=== PATIENT | male | born 1965 | race Caucasian/White ===

== ENCOUNTER 2023-02-02 17:53 | Inpatient (IN) | payer OTHER ==
[2023-02-02 19:12] VITALS: BMI 25.2
[2023-02-02] MEDS ORDERED: chlordiazePOXIDE HCL 25 MG CAPSULE PO PRN (21:38)
[2023-02-02] MEDS ORDERED: guaiFENesin 600 MG TABLET.ER (FP) PO PRN (22:10)
[2023-02-02] MEDS ORDERED: POLYETHYLENE GLYCOL (HEALTHYLAX) 3350 17 GM PACKET PO PRN (22:10)
[2023-02-02] MEDS ORDERED: LOPERAMIDE HCL 2 MG CAPSULE PO PRN (22:10)
[2023-02-02] MEDS ORDERED: IBUPROFEN 600 MG TABLET (FP) PO PRN (22:10)
[2023-02-02] MEDS ORDERED: METHOCARBAMOL 500 MG TABLET PO PRN (22:10)
[2023-02-02] MEDS ORDERED: NICOTINE POLACRILEX 2 MG GUM BUC PRN (22:10)
[2023-02-02] MEDS ORDERED: BENZOCAINE/MENTHOL (CHLORASEPTIC ) LOZENGE MM PRN (22:10)
[2023-02-02] MEDS ORDERED: ACETAMINOPHEN 325 MG TABLET (FP) PO PRN (22:10)
[2023-02-02] MEDS ORDERED: DICYCLOMINE HCL 10 MG CAPSULE PO PRN (22:10)
[2023-02-02] MEDS ORDERED: P-EPHED 60MG/TRIPROLIDI 2.5MG TABLET PO PRN (22:10)
[2023-02-02] MEDS ORDERED: MAGNESIUM HYDROX 2400MG/30ML ORAL SUSPENSION 30 ML CUP PO PRN (22:10)
[2023-02-02] MEDS ORDERED: BISMUTH SUBSALICYLATE 524 MG/30 ML PO PRN (22:10)
[2023-02-02] MEDS ORDERED: IBUPROFEN 400 MG TABLET (FP) PO PRN (22:10)
[2023-02-02] MEDS ORDERED: MAG HYDROX/AL HYDROX/SIMETH 30 ML UNIT-DOSE CUP PO PRN (22:10)
[2023-02-02] MEDS ORDERED: ONDANSETRON *ODT* 4 MG TABLET SL PRN (22:10)
[2023-02-02] MEDS ORDERED: BENZONATATE 200 MG CAPSULE PO PRN (22:10)
[2023-02-02] MEDS ORDERED: chlordiazePOXIDE HCL 25 MG CAPSULE ONE (23:21)
[2023-02-02] MEDS: chlordiazePOXIDE HCL 25 MG CAPSULE PO SCH (23:24)
[2023-02-03] MEDS: chlordiazePOXIDE HCL 25 MG CAPSULE PO SCH ×3 (05:50→17:51)
[2023-02-03] MEDS ORDERED: PRENATAL VITAMINS W/ FOLIC ACID TABLET (FP) PO SCH (10:00)
[2023-02-03 10:44] LABS: HEMOGLOBIN 14.9 GM/dL (11.7-16.9); MCH 31.5 pg (25.7-33.7); MCHC 33.8 g/dl (32.0-35.9); MEAN CELL VOLUME 93.4 fl (80-96); MEAN PLT VOLUME 9.3 fl (7.5-11.1); PLATELET COUNT 144 10^3/uL (134-434); RBC 4.71 M/mm3 (4.00-5.60); RDW 13.2 % (11.9-15.9)
[2023-02-03 10:47] LABS: CHLORIDE 72 mmol/L (98-107); SODIUM 125 mmol/L (136-145)
[2023-02-03 10:56] LABS: ALBUMIN 3.9 g/dl (3.4-5.0); BLOOD UREA NITROGEN 11.6 mg/dL (7-18); CO2 35 mmol/L (21-32); GLUCOSE,RANDOM 147 mg/dL (74-106)
[2023-02-03 10:59] LABS: CREATININE 0.9 mg/dL (0.55-1.3); SGOT/AST 307 U/L (15-37); SGPT/ALT 103 U/L (13-61)
[2023-02-03 11:01] LABS: BILIRUBIN,TOTAL 3.8 mg/dL (0.2-1)
[2023-02-03 11:03] LABS: TOT PROT 7.1 g/dl (6.4-8.2)
[2023-02-03 11:04] LABS: ALK PHOS 131 U/L (45-117)
[2023-02-03 11:06] LABS: ANION GAP 17 mmol/L (4-13); CALCIUM 6.3 mg/dL (8.5-10.1); POTASSIUM 2.1 mmol/L (3.5-5.1)
[2023-02-03] MEDS ORDERED: POTASSIUM CHLORIDE ORAL LIQUID 20 MEQ/15 ML PO ONE ×2 (11:22→15:30)
[2023-02-03 13:01] VITALS: BP 143/84; PULSE 85; RESP 18; TEMP 97.8
[2023-02-03] MEDS ORDERED: THIAMINE HCL 100 MG TABLET (FP) PO SCH (22:00)
[2023-02-03] MEDS ORDERED: MELATONIN 5 MG TABLETS PO SCH (22:00)
[2023-02-04] MEDS ORDERED: chlordiazePOXIDE HCL 25 MG CAPSULE PO SCH (05:00)
[2023-02-05] MEDS ORDERED: chlordiazePOXIDE HCL 10 MG CAPSULE PO PRN
[2023-02-05] MEDS ORDERED: chlordiazePOXIDE HCL 10 MG CAPSULE PO SCH (05:00)
[2023-02-06] MEDS ORDERED: chlordiazePOXIDE HCL 10 MG CAPSULE PO SCH (05:00)
[2023-02-07] MEDS ORDERED: chlordiazePOXIDE HCL 10 MG CAPSULE PO ONE (05:00)
== END 2023-02-03 19:36 | disposition short-term general hospital (02) | DRG 775 ==
LOC: YASAS 17:53 → Y3N 23:12
PROVIDERS: ADMIT Allergy & Immunology; ATTEND Surgery
PROC: HZ2ZZZZ Detoxification Services for Substance Abuse Treatment (ICD-10-PCS; principal; 2023-02-02)
DX: F10.230 Alcohol dependence with withdrawal, uncomplicated (principal); F17.210 Nicotine dependence, cigarettes, uncomplicated; E87.8 Other disorders of electrolyte and fluid balance, not elsewhere classified; E87.6 Hypokalemia; R74.01 Elevation of levels of liver transaminase levels; E83.51 Hypocalcemia; Z91.81 History of falling
CPT/HCPCS: 36415; 80053; 80307; 85027; 86780; 87635; 93005; 93010

== ENCOUNTER 2023-02-03 14:54 | Inpatient (IN) | payer OTHER ==
[2023-02-03 15:25] VITALS: BMI 21.9
[2023-02-03 16:38] LABS: VENOUS BASE EXCESS 13.9 mmol/L (-2-2); VENOUS O2 SATURATION 95.7 % (70-80); VENOUS PCO2 42.7 mmHg (38-52); VENOUS PH 7.563 (7.310-7.410)
[2023-02-03 16:44] LABS: BASO % 0.6 % (0-2.0); EOS % 0.2 % (0-4.5); HEMATOCRIT 41.1 % (35.4-49); HEMOGLOBIN 14.2 GM/dL (11.7-16.9); LYMPH % 18.6 % (8-40); MCHC 34.6 g/dl (32.0-35.9); MEAN CELL VOLUME 92.4 fl (80-96); MEAN PLT VOLUME 9.4 fl (7.5-11.1); MONO % 9.7 % (3.8-10.2); NEUT % 70.9 % (42.8-82.8); PLATELET COUNT 145 10^3/uL (134-434); RBC 4.45 M/mm3 (4.00-5.60); RDW 13.3 % (11.9-15.9); WHITE BLOOD COUNT 5.9 K/mm3 (4.0-10.0)
[2023-02-03 16:46] LABS: EPI CELLS >36 /uL (0-25.1); HYALINE CASTS 1 /uL (0-3.1); URINE APPEARANCE TURBID; URINE BILIRUBIN 2+ (NEGATIVE); URINE COLOR ORANGE; URINE GLUCOSE (UA) NEGATIVE (NEGATIVE); URINE KETONE TRACE (NEGATIVE); URINE LEUK ESTERASE 1+ (NEGATIVE); URINE NITRITE POSITIVE (NEGATIVE); URINE PROTEIN 2+ (NEGATIVE); URINE WBC 45 /uL (0-25.8)
[2023-02-03 17:57] LABS: CHLORIDE 78 mmol/L (98-107); SODIUM 125 mmol/L (136-145)
[2023-02-03 18:00] LABS: ALBUMIN 3.5 g/dl (3.4-5.0); BLOOD UREA NITROGEN 12.8 mg/dL (7-18); CO2 39 mmol/L (21-32); GLUCOSE,RANDOM 114 mg/dL (74-106)
[2023-02-03 18:02] LABS: SGPT/ALT 84 U/L (13-61)
[2023-02-03 18:03] LABS: CREATININE 0.7 mg/dL (0.55-1.3); PHOSPHOROUS 2.7 mg/dL (2.5-4.9)
[2023-02-03 18:04] LABS: BILIRUBIN,TOTAL 2.4 mg/dL (0.2-1); SGOT/AST 236 U/L (15-37); TOT PROT 6.3 g/dl (6.4-8.2)
[2023-02-03] MEDS ORDERED: CEFTRIAXONE 1 GM in DEXTROSE 5%-WATER - 50 ML IVPB ONE (18:04)
[2023-02-03 18:05] LABS: ALK PHOS 112 U/L (45-117)
[2023-02-03 18:10] LABS: ANION GAP 9 mmol/L (4-13); CALCIUM 6.1 mg/dL (8.5-10.1); MAGNESIUM 0.7 mg/dL (1.8-2.4); POTASSIUM 2.2 mmol/L (3.5-5.1)
[2023-02-03] MEDS ORDERED: MAGNESIUM SULF 50% (8.12 MEQ/2 ML-1 GM VIAL) IVPB ONE ×3 (18:12→23:30)
[2023-02-03] MEDS ORDERED: CEFTRIAXONE 1 GM/50 ML BAG ONE (18:15)
[2023-02-03] MEDS ORDERED: FOLIC ACID INJECTION - 1 MG, THIAMINE HCL 100 MG, MULTIVIT INJECTION ADULT 10 ML in SOD... IVPB ONE (18:24)
[2023-02-03] MEDS ORDERED: NAPH,MB-DB/K PH,MBDB POWDER PACKET PO ONE (18:24)
[2023-02-03] MEDS ORDERED: CALCIUM GLUCONATE 10% - 1,000 MG/10 ML VIAL IVPUSH ONE ×2 (18:30→23:30)
[2023-02-03] MEDS ORDERED: POTASSIUM CHLORIDE TABS 20 MEQ TABLET.ER (FP) PO ONE ×2 (18:30→18:49)
[2023-02-03] MEDS ORDERED: MAGNESIUM SULFATE IN WATER 2 GM/50 ML IVPB IVPB ONE ×2 (18:50→20:54)
[2023-02-03] MEDS ORDERED: CALCIUM GLUCONATE 10% - 1,000 MG/10 ML VIAL ONE (18:50)
[2023-02-03] MEDS ORDERED: NAPH,MB-DB/K PH,MBDB POWDER PACKET ONE (18:50)
[2023-02-03] MEDS ORDERED: KCL 10 MEQ IVPB 10 MEQ/100 ML INFUS.BAG IVPB ONE (19:18)
[2023-02-03] MEDS: KCL 10 MEQ IVPB 10 MEQ/100 ML INFUS.BAG IVPB SCH ×3 (19:19→20:52)
[2023-02-03 19:29] LABS: URINE BACTERIA 177.5 /uL (0-1359); URINE RBC 26.2 /uL (0-23.9)
[2023-02-03 19:32] LABS: URINE CRYSTALS MANY /hpf
[2023-02-03] MEDS ORDERED: KCL 10 MEQ IVPB 20 MEQ/200 ML INFUS.BAG IVPB ONE (19:55)
[2023-02-03 21:56] LABS: CHLORIDE 78 mmol/L (98-107); SODIUM 125 mmol/L (136-145)
[2023-02-03 21:59] LABS: ALBUMIN 3.4 g/dl (3.4-5.0); BLOOD UREA NITROGEN 12.2 mg/dL (7-18); CO2 37 mmol/L (21-32); GLUCOSE,RANDOM 113 mg/dL (74-106); MAGNESIUM 1.6 mg/dL (1.8-2.4)
[2023-02-03 22:02] LABS: CREATININE 0.6 mg/dL (0.55-1.3); SGOT/AST 209 U/L (15-37); SGPT/ALT 81 U/L (13-61)
[2023-02-03 22:04] LABS: BILIRUBIN,TOTAL 2.2 mg/dL (0.2-1); TOT PROT 6.2 g/dl (6.4-8.2)
[2023-02-03 22:05] LABS: ALK PHOS 111 U/L (45-117); ANION GAP 10 mmol/L (4-13); CALCIUM 6.6 mg/dL (8.5-10.1); POTASSIUM 2.7 mmol/L (3.5-5.1)
[2023-02-03] MEDS ORDERED: SODIUM CHLORIDE 1,000 ML IV STA ×2 (22:49→22:50)
[2023-02-03] MEDS ORDERED: chlordiazePOXIDE HCL 25 MG CAPSULE PO PRN (23:33)
[2023-02-04] MEDS ORDERED: SODIUM CHLORIDE 1,000 ML with POTASSIUM CHLORIDE 40 MEQ IV SCH (00:01)
[2023-02-04] MEDS ORDERED: KCL 10 MEQ IVPB 10 MEQ/100 ML INFUS.BAG IVPB ONE ×2 (00:28→02:03)
[2023-02-04] MEDS ORDERED: chlordiazePOXIDE HCL 25 MG CAPSULE ONE ×5 (00:28→20:47)
[2023-02-04] MEDS ORDERED: MAGNESIUM 1GM/D5W - 2 GM/200 ML IVPB IVPB ONE (00:28)
[2023-02-04] MEDS ORDERED: CALCIUM GLUCONATE 10% - 1,000 MG/10 ML VIAL ONE (00:29)
[2023-02-04] MEDS: KCL 10 MEQ IVPB 10 MEQ/100 ML INFUS.BAG IVPB SCH ×5 (01:00→16:59)
[2023-02-04] MEDS: chlordiazePOXIDE HCL 25 MG CAPSULE PO SCH ×5 (01:34→22:15)
[2023-02-04] MEDS ORDERED: POTASSIUM CHLORIDE TABS 20 MEQ TABLET.ER (FP) PO ONE ×2 (03:45→04:00)
[2023-02-04] MEDS ORDERED: MAGNESIUM SULF 50% (8.12 MEQ/2 ML-1 GM VIAL) IVPB ONE (09:23)
[2023-02-04] MEDS ORDERED: ENOXAPARIN NA (PORCINE) 40 MG/0.4 ML DISP.SYRIN SQ ONE (09:52)
[2023-02-04] MEDS ORDERED: THIAMINE HCL 200 MG/2 ML VIAL ONE (09:52)
[2023-02-04] MEDS ORDERED: FOLIC ACID 5 MG/1 ML SQ SCH (10:00)
[2023-02-04] MEDS ORDERED: ENOXAPARIN NA (PORCINE) 40 MG/0.4 ML DISP.SYRIN SQ SCH (10:00)
[2023-02-04] MEDS ORDERED: THIAMINE HCL 200 MG/2 ML VIAL IVPB SCH (10:00)
[2023-02-04 10:29] LABS: BASO % 0.7 % (0-2.0); EOS % 1.1 % (0-4.5); HEMOGLOBIN 15.2 GM/dL (11.7-16.9); LYMPH % 15.6 % (8-40); MCH 31.9 pg (25.7-33.7); MCHC 33.9 g/dl (32.0-35.9); MEAN CELL VOLUME 94.1 fl (80-96); MEAN PLT VOLUME 9.1 fl (7.5-11.1); MONO % 5.8 % (3.8-10.2); NEUT % 76.8 % (42.8-82.8); PLATELET COUNT 128 10^3/uL (134-434); RBC 4.78 M/mm3 (4.00-5.60); WHITE BLOOD COUNT 6.7 K/mm3 (4.0-10.0)
[2023-02-04 10:49] LABS: CHLORIDE 91 mmol/L (98-107); SODIUM 132 mmol/L (136-145)
[2023-02-04 10:52] LABS: ALBUMIN 3.7 g/dl (3.4-5.0); ANION GAP 8 mmol/L (4-13); BLOOD UREA NITROGEN 8.5 mg/dL (7-18); CO2 33 mmol/L (21-32); GLUCOSE,RANDOM 95 mg/dL (74-106); MAGNESIUM 1.9 mg/dL (1.8-2.4)
[2023-02-04 10:54] LABS: CREATININE 0.5 mg/dL (0.55-1.3); SGOT/AST 198 U/L (15-37); SGPT/ALT 82 U/L (13-61)
[2023-02-04 10:56] LABS: BILIRUBIN,TOTAL 2.1 mg/dL (0.2-1); TOT PROT 6.8 g/dl (6.4-8.2)
[2023-02-04 10:57] LABS: ALK PHOS 122 U/L (45-117)
[2023-02-04 10:58] LABS: CALCIUM 6.7 mg/dL (8.5-10.1)
[2023-02-04] MEDS ORDERED: POTASSIUM CHLORIDE 40 MEQ in SODIUM CHLORIDE 1,000 ML IV SCH (11:18)
[2023-02-04 11:44] LABS: HIV INTERPRETATION NEGATIVE (NEGATIVE)
[2023-02-04] MEDS: POTASSIUM CHLORIDE 40 MEQ in SODIUM CHLORIDE 1,000 ML IV SCH ×2 (11:51→21:04)
[2023-02-04] MEDS: POTASSIUM CHLORIDE ORAL LIQUID 20 MEQ/15 ML PO ONE ×2 (13:16→13:39)
[2023-02-04] MEDS ORDERED: KCL 10 MEQ IVPB 30 MEQ/300 ML INFUS.BAG IVPB ONE (13:18)
[2023-02-04] MEDS: NAPH,MB-DB/K PH,MBDB POWDER PACKET PO SCH ×2 (13:19→21:55)
[2023-02-04] MEDS ORDERED: NAPH,MB-DB/K PH,MBDB POWDER PACKET ONE ×2 (13:19→20:47)
[2023-02-04] MEDS ORDERED: POTASSIUM CHLORIDE ORAL LIQUID 20 MEQ/15 ML ONE (13:38)
[2023-02-04 14:28] VITALS: TEMP 98
[2023-02-04] MEDS ORDERED: CEFTRIAXONE 1 GM in DEXTROSE 5%-WATER - 50 ML IVPB SCH (18:00)
[2023-02-04] MEDS ORDERED: CEFTRIAXONE 1 GM/50 ML BAG ONE (19:32)
[2023-02-04 22:18] VITALS: BP 137/73; PULSE 73; RESP 20
[2023-02-05] MEDS ORDERED: chlordiazePOXIDE HCL 25 MG CAPSULE PO SCH (05:00)
[2023-02-06] MEDS ORDERED: chlordiazePOXIDE HCL 10 MG CAPSULE PO PRN
[2023-02-06] MEDS ORDERED: chlordiazePOXIDE HCL 10 MG CAPSULE PO SCH (05:00)
[2023-02-07] MEDS ORDERED: chlordiazePOXIDE HCL 10 MG CAPSULE PO SCH (05:00)
[2023-02-08] MEDS ORDERED: chlordiazePOXIDE HCL 10 MG CAPSULE PO ONE (05:00)
== END 2023-02-05 00:30 | disposition left against medical advice (07) | DRG 425 ==
LOC: JER 14:54 → JERBED 18:54 → OBSVTOIN 23:42 → J4W 02-05 00:16
PROVIDERS: ADMIT Internal Medicine
PROC: HZ2ZZZZ Detoxification Services for Substance Abuse Treatment (ICD-10-PCS; principal; 2023-02-03)
DX: E87.6 Hypokalemia (principal); E83.42 Hypomagnesemia; E87.1 Hypo-osmolality and hyponatremia; E83.51 Hypocalcemia; F10.20 Alcohol dependence, uncomplicated; F17.210 Nicotine dependence, cigarettes, uncomplicated; R74.01 Elevation of levels of liver transaminase levels
CPT/HCPCS: 36415; 76700-TC; 80053; 80076; 81003; 82010; 82570; 82803; 83735; 83930; 83935; 84100; 84300; 84484; 85025; 86705; 86707; 86708; 87350; 87389; 87517; 87522; 93005; 93010; 99285-25; G0378

== ENCOUNTER 2023-04-19 12:31 | Inpatient (IN) | payer OTHER ==
[2023-04-19 12:57] VITALS: BMI 28.3
[2023-04-19] MEDS ORDERED: DICYCLOMINE HCL 10 MG CAPSULE PO PRN (13:47)
[2023-04-19] MEDS ORDERED: P-EPHED 60MG/TRIPROLIDI 2.5MG TABLET PO PRN (13:47)
[2023-04-19] MEDS ORDERED: guaiFENesin 600 MG TABLET.ER (FP) PO PRN (13:47)
[2023-04-19] MEDS ORDERED: LOPERAMIDE HCL 2 MG CAPSULE PO PRN (13:47)
[2023-04-19] MEDS ORDERED: MAG HYDROX/AL HYDROX/SIMETH 30 ML UNIT-DOSE CUP PO PRN (13:47)
[2023-04-19] MEDS ORDERED: ONDANSETRON *ODT* 4 MG TABLET SL PRN (13:47)
[2023-04-19] MEDS ORDERED: BENZONATATE 200 MG CAPSULE PO PRN (13:47)
[2023-04-19] MEDS ORDERED: BENZOCAINE/MENTHOL (CHLORASEPTIC ) LOZENGE MM PRN (13:47)
[2023-04-19] MEDS ORDERED: POLYETHYLENE GLYCOL (HEALTHYLAX) 3350 17 GM PACKET PO PRN (13:47)
[2023-04-19] MEDS ORDERED: BISMUTH SUBSALICYLATE 524 MG/30 ML PO PRN (13:47)
[2023-04-19] MEDS ORDERED: MAGNESIUM HYDROX 2400MG/30ML ORAL SUSPENSION 30 ML CUP PO PRN (13:47)
[2023-04-19 15:33] LABS: POTASSIUM 3.7 mmol/L (3.5-5.1)
[2023-04-19 15:37] LABS: ALBUMIN 2.6 g/dl (3.4-5.0)
[2023-04-19 15:38] LABS: MAGNESIUM 1.4 mg/dL (1.8-2.4)
[2023-04-19 15:41] LABS: BILIRUBIN,DIRECT 2.3 mg/dL (0.0-0.2); PHOSPHOROUS 2.7 mg/dL (2.5-4.9)
[2023-04-19 15:42] LABS: TOT PROT 6.1 g/dl (6.4-8.2)
[2023-04-19] MEDS: MAGNESIUM OXIDE 400 MG TABLET (FP) PO ONE (17:21)
[2023-04-19] MEDS: THIAMINE HCL 100 MG TABLET (FP) PO SCH (22:35)
[2023-04-19] MEDS: MAGNESIUM OXIDE 400 MG TABLET (FP) PO SCH (22:35)
[2023-04-19] MEDS: MELATONIN 5 MG TABLETS PO SCH (22:35)
[2023-04-20] MEDS ORDERED: diazePAM 5 MG TABLET PO PRN (10:04)
[2023-04-20] MEDS: PRENATAL VITAMINS W/ FOLIC ACID TABLET (FP) PO SCH (10:10)
[2023-04-20] MEDS: diazePAM 5 MG TABLET PO SCH (10:14)
[2023-04-20 10:16] LABS: HEMATOCRIT 30.9 % (35.4-49); HEMOGLOBIN 10.4 GM/dL (11.7-16.9); MCH 34.7 pg (25.7-33.7); MCHC 33.7 g/dl (32.0-35.9); MEAN CELL VOLUME 102.8 fl (80-96); MEAN PLT VOLUME 8.1 fl (7.5-11.1); PLATELET COUNT 419 10^3/uL (134-434); RBC 3.01 M/mm3 (4.00-5.60); RDW 15.4 % (11.9-15.9); WHITE BLOOD COUNT 20.7 K/mm3 (4.0-10.0)
[2023-04-20 10:17] LABS: POTASSIUM 3.9 mmol/L (3.5-5.1)
[2023-04-20 10:19] LABS: CALCIUM 7.6 mg/dL (8.5-10.1)
[2023-04-20 10:20] LABS: ALBUMIN 2.4 g/dl (3.4-5.0); MAGNESIUM 1.4 mg/dL (1.8-2.4)
[2023-04-20 10:23] LABS: CREATININE 0.5 mg/dL (0.55-1.3)
[2023-04-20 10:24] LABS: BILIRUBIN,TOTAL 2.2 mg/dL (0.2-1); TOT PROT 5.6 g/dl (6.4-8.2)
[2023-04-20 17:06] LABS: PH,URINE 6.5 (5.0-8.0); URINE APPEARANCE CLEAR; URINE BILIRUBIN 1+ (NEGATIVE); URINE COLOR DK YELLOW; URINE GLUCOSE (UA) NEGATIVE (NEGATIVE); URINE KETONE NEGATIVE (NEGATIVE); URINE LEUK ESTERASE NEGATIVE (NEGATIVE); URINE NITRITE NEGATIVE (NEGATIVE); URINE PROTEIN NEGATIVE (NEGATIVE)
[2023-04-21] MEDS: FLU VACCINE (FLULAVAL) PF 60 MCG/0.5 ML SYRINGE 2023-2024 IM ONE (11:26)
[2023-04-21] MEDS: PNEUMOC 20-VAL CONJ-DIP CRM/PF 0.5 ML SYRINGE IM ONE (11:33)
[2023-04-21 14:06] LABS: HEMATOCRIT 30.4 % (35.4-49); HEMOGLOBIN 10.3 GM/dL (11.7-16.9); MCH 35.6 pg (25.7-33.7); MCHC 33.8 g/dl (32.0-35.9); MEAN CELL VOLUME 105.2 fl (80-96); MEAN PLT VOLUME 8.1 fl (7.5-11.1); PLATELET COUNT 442 10^3/uL (134-434); RBC 2.89 M/mm3 (4.00-5.60); RDW 15.6 % (11.9-15.9); WHITE BLOOD COUNT 21.6 K/mm3 (4.0-10.0)
[2023-04-21 14:07] LABS: POTASSIUM 4.2 mmol/L (3.5-5.1)
[2023-04-21 14:20] LABS: BLOOD UREA NITROGEN 4.2 mg/dL (7-18); CALCIUM 7.7 mg/dL (8.5-10.1)
[2023-04-21 14:23] LABS: CREATININE 0.3 mg/dL (0.55-1.3)
[2023-04-21 14:24] LABS: LDH 223 U/L (87-246)
[2023-04-21 15:28] LABS: ANISOCYTOSIS 2+; MACROCYTOSIS 2+
[2023-04-22] MEDS: diazePAM 5 MG TABLET PO SCH (05:41)
[2023-04-22 17:03] VITALS: BP 119/65; PULSE 119; RESP 16; TEMP 98.2
[2023-04-23] MEDS ORDERED: diazePAM 5 MG TABLET PO SCH (06:00)
[2023-04-24] MEDS ORDERED: diazePAM 5 MG TABLET PO ONE (06:00)
== END 2023-04-23 02:00 | disposition short-term general hospital (02) | DRG 775 ==
LOC: YASAS 12:31 → Y6N 13:53
PROVIDERS: ADMIT Allergy & Immunology; ATTEND Allergy & Immunology
PROC: HZ2ZZZZ Detoxification Services for Substance Abuse Treatment (ICD-10-PCS; principal; 2023-04-19)
DX: F10.230 Alcohol dependence with withdrawal, uncomplicated (principal); F17.210 Nicotine dependence, cigarettes, uncomplicated; D72.829 Elevated white blood cell count, unspecified; R74.01 Elevation of levels of liver transaminase levels
CPT/HCPCS: 36415; 71046-TC-FY; 80048; 80053; 80076; 81003; 83615; 83690; 83735; 84100; 84132; 85025; 85027; 86140; 86780; 87635; 90677; 90686; G0008

== ENCOUNTER 2023-04-22 19:00 | Inpatient (IN) | payer OTHER ==
[2023-04-22] MEDS ORDERED: IBUPROFEN 600 MG TABLET (FP) PO ONE (20:52)
[2023-04-22] MEDS: IBUPROFEN 600 MG TABLET (FP) PO ONE (21:26)
[2023-04-22 21:56] LABS: INR 1.47 (0.83-1.09)
[2023-04-22 21:59] LABS: ACTIVATED PTT 36.6 SECONDS (25.2-36.5)
[2023-04-22 22:11] LABS: POTASSIUM 4.5 mmol/L (3.5-5.1)
[2023-04-22 22:14] LABS: ALBUMIN 2.6 g/dl (3.4-5.0); CALCIUM 8.1 mg/dL (8.5-10.1)
[2023-04-22 22:15] LABS: BLOOD UREA NITROGEN 8.6 mg/dL (7-18)
[2023-04-22 22:17] LABS: CREATININE 0.5 mg/dL (0.55-1.3)
[2023-04-22 22:19] LABS: BILIRUBIN,TOTAL 2.1 mg/dL (0.2-1); TOT PROT 6.2 g/dl (6.4-8.2)
[2023-04-22 22:20] LABS: MAGNESIUM 1.6 mg/dL (1.8-2.4)
[2023-04-22] MEDS: LACTATED RINGERS SOLUTION 1,000 ML/1,000 ML INFUS.BAG IV SCH (22:32)
[2023-04-22 23:09] LABS: BILIRUBIN,DIRECT 1.5 mg/dL (0.0-0.2)
[2023-04-22] MEDS ORDERED: MAGNESIUM SULFATE IN WATER 2 GM/50 ML IVPB IVPB ONE (23:14)
[2023-04-22] MEDS: MAGNESIUM SULF 50% (8.12 MEQ/2 ML-1 GM VIAL) IVPB ONE (23:19)
[2023-04-22 23:21] LABS: HEMATOCRIT 30.7 % (35.4-49); HEMOGLOBIN 10.4 GM/dL (11.7-16.9); MCH 34.2 pg (25.7-33.7); MCHC 33.9 g/dl (32.0-35.9); MEAN CELL VOLUME 100.8 fl (80-96); PLATELET COUNT 434 10^3/uL (134-434); RBC 3.04 M/mm3 (4.00-5.60); RDW 15.3 % (11.9-15.9)
[2023-04-23 00:08] LABS: ANISOCYTOSIS 1+; MACROCYTOSIS 1+; OVALOCYTE 1+
[2023-04-23 00:20] LABS: PLATELET ESTIMATE ADEQUATE
[2023-04-23 01:09] LABS: URINE APPEARANCE CLEAR; URINE BILIRUBIN NEGATIVE (NEGATIVE); URINE COLOR YELLOW; URINE GLUCOSE (UA) NEGATIVE (NEGATIVE); URINE KETONE NEGATIVE (NEGATIVE); URINE LEUK ESTERASE NEGATIVE (NEGATIVE); URINE NITRITE NEGATIVE (NEGATIVE); URINE PROTEIN NEGATIVE (NEGATIVE); URINE UROBILINOGEN 0.2 mg/dL (0.2-1.0)
[2023-04-23] MEDS ORDERED: PIPERACILLIN/TAZOB 3.375 GM 3.375 GM/50 ML BAG IVPB ONE ×2 (01:52→06:33)
[2023-04-23] MEDS: PIPERACILLIN/TAZOB 3.375 GM 3.375 GM in DEXTROSE 5%-WATER - 50 ML IVPB ONE (02:00)
[2023-04-23] MEDS ORDERED: diazePAM 5 MG TABLET PO PRN (06:24)
[2023-04-23 06:32] LABS: HEMATOCRIT 31.7 % (35.4-49); HEMOGLOBIN 10.6 GM/dL (11.7-16.9); MCHC 33.4 g/dl (32.0-35.9); MEAN CELL VOLUME 101.7 fl (80-96); MEAN PLT VOLUME 7.7 fl (7.5-11.1); PLATELET COUNT 465 10^3/uL (134-434); RBC 3.11 M/mm3 (4.00-5.60); WHITE BLOOD COUNT 22.3 K/mm3 (4.0-10.0)
[2023-04-23] MEDS: PIPERACILLIN/TAZOB 3.375 GM 3.375 GM in DEXTROSE 5%-WATER - 50 ML IVPB SCH (06:42)
[2023-04-23 06:43] LABS: INR 1.42 (0.83-1.09); PROTHROMBIN TIME (PATIENT) 16.4 SEC (9.7-13.0)
[2023-04-23 06:45] LABS: POTASSIUM 4.2 mmol/L (3.5-5.1)
[2023-04-23 06:46] LABS: ACTIVATED PTT 36.3 SECONDS (25.2-36.5)
[2023-04-23 06:50] LABS: ALBUMIN 2.5 g/dl (3.4-5.0); CALCIUM 7.9 mg/dL (8.5-10.1)
[2023-04-23 06:51] LABS: BLOOD UREA NITROGEN 9.1 mg/dL (7-18); MAGNESIUM 2.1 mg/dL (1.8-2.4)
[2023-04-23 06:53] LABS: CREATININE 0.4 mg/dL (0.55-1.3); PHOSPHOROUS 3.1 mg/dL (2.5-4.9)
[2023-04-23 06:55] LABS: BILIRUBIN,TOTAL 1.8 mg/dL (0.2-1); TOT PROT 5.8 g/dl (6.4-8.2)
[2023-04-23] MEDS ORDERED: LORazepam 2 MG/ML SDV VIAL IVPUSH PRN (11:07)
[2023-04-23] MEDS: LACTATED RINGERS SOLUTION 1,000 ML/1,000 ML INFUS.BAG IV SCH (11:40)
[2023-04-23 12:12] VITALS: BMI 27.2
[2023-04-23] MEDS: FOLIC ACID 5 MG/1 ML SQ SCH (14:58)
[2023-04-23] MEDS: CYANOCOBALAMIN (VITAMIN B-12) 1000 MCG/1 ML VIAL IM SCH (14:59)
[2023-04-23] MEDS ORDERED: cefTRIAXone SODIUM 1 GM VIAL ONE (18:24)
[2023-04-23] MEDS: CEFTRIAXONE 1 GM in DEXTROSE 5%-WATER - 50 ML IVPB SCH (18:25)
[2023-04-24 10:13] LABS: BASO % 0.6 % (0-2.0); EOS % 2.1 % (0-4.5); HEMATOCRIT 33.7 % (35.4-49); HEMOGLOBIN 11.1 GM/dL (11.7-16.9); LYMPH % 6.7 % (8-40); MCH 33.8 pg (25.7-33.7); MEAN CELL VOLUME 102.5 fl (80-96); MEAN PLT VOLUME 7.7 fl (7.5-11.1); MONO % 4.1 % (3.8-10.2); NEUT % 86.5 % (42.8-82.8); PLATELET COUNT 531 10^3/uL (134-434); RBC 3.29 M/mm3 (4.00-5.60); RDW 14.9 % (11.9-15.9); WHITE BLOOD COUNT 19.9 K/mm3 (4.0-10.0)
[2023-04-24 10:26] LABS: POTASSIUM 4.1 mmol/L (3.5-5.1)
[2023-04-24 10:28] LABS: BLOOD UREA NITROGEN 8.6 mg/dL (7-18); CALCIUM 8.2 mg/dL (8.5-10.1); MAGNESIUM 1.9 mg/dL (1.8-2.4)
[2023-04-24 10:29] LABS: ALBUMIN 2.5 g/dl (3.4-5.0)
[2023-04-24 10:31] LABS: CREATININE 0.4 mg/dL (0.55-1.3)
[2023-04-24 10:32] LABS: PHOSPHOROUS 3.5 mg/dL (2.5-4.9)
[2023-04-24 10:33] LABS: BILIRUBIN,TOTAL 1.4 mg/dL (0.2-1)
[2023-04-24] MEDS: SODIUM CHLORIDE 1,000 ML IV SCH (17:31)
[2023-04-25 08:15] LABS: BASO % 0.9 % (0-2.0); HEMATOCRIT 33.5 % (35.4-49); HEMOGLOBIN 10.9 GM/dL (11.7-16.9); MCH 33.3 pg (25.7-33.7); MCHC 32.6 g/dl (32.0-35.9); MEAN CELL VOLUME 102.2 fl (80-96); MEAN PLT VOLUME 7.7 fl (7.5-11.1); MONO % 3.9 % (3.8-10.2); NEUT % 81.2 % (42.8-82.8); PLATELET COUNT 544 10^3/uL (134-434); RBC 3.28 M/mm3 (4.00-5.60); RDW 14.9 % (11.9-15.9); WHITE BLOOD COUNT 18.2 K/mm3 (4.0-10.0)
[2023-04-25 09:01] LABS: TOT PROT 5.7 g/dl (6.4-8.2)
[2023-04-25 09:05] LABS: ALBUMIN 2.2 g/dl (3.4-5.0)
[2023-04-25 09:06] LABS: CALCIUM 7.8 mg/dL (8.5-10.1)
[2023-04-25 09:07] LABS: MAGNESIUM 1.4 mg/dL (1.8-2.4); PHOSPHOROUS 2.7 mg/dL (2.5-4.9)
[2023-04-25 09:08] LABS: CREATININE 0.3 mg/dL (0.55-1.3)
[2023-04-25] MEDS: CEFTRIAXONE 1 GM in DEXTROSE 5%-WATER - 50 ML IVPB SCH (09:59)
[2023-04-25 14:36] VITALS: RESP 18
[2023-04-26] MEDS ORDERED: diazePAM 5 MG TABLET PO ONE (06:00)
[2023-04-26 09:44] LABS: HEMATOCRIT 33.8 % (35.4-49); HEMOGLOBIN 11.4 GM/dL (11.7-16.9); MCH 34.4 pg (25.7-33.7); MCHC 33.7 g/dl (32.0-35.9); MEAN CELL VOLUME 102.2 fl (80-96); MEAN PLT VOLUME 7.9 fl (7.5-11.1); PLATELET COUNT 561 10^3/uL (134-434); RDW 14.5 % (11.9-15.9); WHITE BLOOD COUNT 21.7 K/mm3 (4.0-10.0)
[2023-04-26] MEDS: ENOXAPARIN NA (PORCINE) 40 MG/0.4 ML DISP.SYRIN SQ SCH (09:54)
[2023-04-26 10:03] LABS: POTASSIUM 4.3 mmol/L (3.5-5.1)
[2023-04-26 10:27] LABS: CALCIUM 8.3 mg/dL (8.5-10.1)
[2023-04-26 10:28] LABS: ALBUMIN 2.4 g/dl (3.4-5.0); BLOOD UREA NITROGEN 6.1 mg/dL (7-18); MAGNESIUM 1.4 mg/dL (1.8-2.4)
[2023-04-26 10:31] LABS: CREATININE 0.3 mg/dL (0.55-1.3)
[2023-04-26 10:32] LABS: BILIRUBIN,TOTAL 1.1 mg/dL (0.2-1)
[2023-04-26 10:36] LABS: ANISOCYTOSIS 0; HELMET CELLS 0; HOWELL-JOLLY BODIES 0; MACROCYTOSIS 0; OVALOCYTE 0; ROULEAU 0; SICKELED CELLS 0; TARGET CELLS 0; TEAR DROP CELLS 0; TOXIC GRANULATION 0
[2023-04-27 09:35] LABS: HEMATOCRIT 34.3 % (35.4-49); HEMOGLOBIN 11.3 GM/dL (11.7-16.9); MCH 33.6 pg (25.7-33.7); MCHC 32.9 g/dl (32.0-35.9); MEAN CELL VOLUME 102.1 fl (80-96); MEAN PLT VOLUME 7.8 fl (7.5-11.1); PLATELET COUNT 611 10^3/uL (134-434); RBC 3.36 M/mm3 (4.00-5.60); RDW 14.4 % (11.9-15.9); WHITE BLOOD COUNT 22.7 K/mm3 (4.0-10.0)
[2023-04-27 10:11] LABS: POTASSIUM 4.3 mmol/L (3.5-5.1)
[2023-04-27 10:13] LABS: BLOOD UREA NITROGEN 7.3 mg/dL (7-18); CALCIUM 8.3 mg/dL (8.5-10.1); MAGNESIUM 1.7 mg/dL (1.8-2.4)
[2023-04-27 10:14] LABS: ALBUMIN 2.7 g/dl (3.4-5.0)
[2023-04-27 10:16] LABS: CREATININE 0.3 mg/dL (0.55-1.3)
[2023-04-27 10:18] LABS: BILIRUBIN,TOTAL 1.2 mg/dL (0.2-1); TOT PROT 6.3 g/dl (6.4-8.2)
[2023-04-27 11:20] LABS: ANISOCYTOSIS 1+; MACROCYTOSIS 1+
[2023-04-27] MEDS: CYANOCOBALAMIN (VITAMIN B-12) 100 MCG TABLET PO SCH (11:24)
[2023-04-27] MEDS: FOLIC ACID 1 MG TABLET (FP) PO SCH (11:50)
[2023-04-28 09:03] LABS: HEMATOCRIT 35.6 % (35.4-49); HEMOGLOBIN 12.1 GM/dL (11.7-16.9); MCH 34.4 pg (25.7-33.7); MCHC 33.9 g/dl (32.0-35.9); MEAN CELL VOLUME 101.3 fl (80-96); MEAN PLT VOLUME 7.4 fl (7.5-11.1); PLATELET COUNT 639 10^3/uL (134-434); RBC 3.51 M/mm3 (4.00-5.60); RDW 14.8 % (11.9-15.9); WHITE BLOOD COUNT 22.9 K/mm3 (4.0-10.0)
[2023-04-28 09:49] LABS: POTASSIUM 4.4 mmol/L (3.5-5.1)
[2023-04-28 09:57] LABS: ALBUMIN 2.7 g/dl (3.4-5.0); BLOOD UREA NITROGEN 6.2 mg/dL (7-18); CALCIUM 8.9 mg/dL (8.5-10.1); MAGNESIUM 1.6 mg/dL (1.8-2.4)
[2023-04-28 10:00] LABS: CREATININE 0.4 mg/dL (0.55-1.3)
[2023-04-28 10:01] LABS: TOT PROT 6.6 g/dl (6.4-8.2)
[2023-04-28 11:06] LABS: ANISOCYTOSIS 0; MACROCYTOSIS 1+
[2023-04-29 09:16] LABS: HEMOGLOBIN 12.3 GM/dL (11.7-16.9); MCH 34.4 pg (25.7-33.7); MCHC 34.1 g/dl (32.0-35.9); MEAN CELL VOLUME 100.8 fl (80-96); MEAN PLT VOLUME 7.1 fl (7.5-11.1); PLATELET COUNT 678 10^3/uL (134-434); RBC 3.58 M/mm3 (4.00-5.60); RDW 14.9 % (11.9-15.9); WHITE BLOOD COUNT 20.4 K/mm3 (4.0-10.0)
[2023-04-29 09:26] LABS: POTASSIUM 4.4 mmol/L (3.5-5.1)
[2023-04-29 09:39] LABS: CALCIUM 9.1 mg/dL (8.5-10.1)
[2023-04-29 09:40] LABS: BLOOD UREA NITROGEN 5.4 mg/dL (7-18); MAGNESIUM 1.6 mg/dL (1.8-2.4)
[2023-04-29 09:43] LABS: CREATININE 0.5 mg/dL (0.55-1.3)
[2023-04-29 09:44] LABS: BILIRUBIN,TOTAL 1.1 mg/dL (0.2-1)
[2023-04-29 09:46] LABS: TOT PROT 7.2 g/dl (6.4-8.2)
[2023-04-29 10:38] LABS: ANISOCYTOSIS 1+; MACROCYTOSIS 1+
[2023-04-29 14:25] VITALS: BP 122/82; PULSE 89; TEMP 97.5
== END 2023-04-29 16:35 | disposition home or self-care (01) ==
LOC: JER 19:00 → JERBED 04-23 01:53 → J8W 04-23 08:11
PROVIDERS: ADMIT Internal Medicine; ATTEND Nurse Practitioner Acute Care
DX: K80.10 Calculus of gallbladder with chronic cholecystitis without obstruction (principal); U07.1 COVID-19; F17.210 Nicotine dependence, cigarettes, uncomplicated; D64.9 Anemia, unspecified; E87.1 Hypo-osmolality and hyponatremia; F10.20 Alcohol dependence, uncomplicated; M79.3 Panniculitis, unspecified; D72.829 Elevated white blood cell count, unspecified; D47.3 Essential (hemorrhagic) thrombocythemia
CPT/HCPCS: 0241U-QW; 36415; 71046-TC-FY; 74177-TC; 76705-TC; 78226-TC; 80053; 81003; 82140; 82248; 82728; 83010; 83540; 83550; 83615; 83690; 83735; 84100; 85025; 85027; 85045; 85610; 85730; 86704; 86850; 86900; 86901; 87040; 87086; 87340; 87517; 87635; 87902; 99285-25; A9537; Q9967

== ENCOUNTER 2023-08-02 02:36 | Inpatient (IN) | payer OTHER ==
[2023-08-02 03:20] VITALS: BMI 26.6
[2023-08-02] MEDS ORDERED: guaiFENesin 600 MG TABLET.ER (FP) PO PRN (03:24)
[2023-08-02] MEDS ORDERED: ACETAMINOPHEN 325 MG TABLET (FP) PO PRN (03:24)
[2023-08-02] MEDS ORDERED: MAG HYDROX/AL HYDROX/SIMETH 30 ML UNIT-DOSE CUP PO PRN (03:24)
[2023-08-02] MEDS ORDERED: BENZONATATE 200 MG CAPSULE PO PRN (03:24)
[2023-08-02] MEDS ORDERED: IBUPROFEN 400 MG TABLET (FP) PO PRN (03:24)
[2023-08-02] MEDS ORDERED: NALOXONE HCL (KLOXXADO) 8 MG SPRAY NS PRN (03:24)
[2023-08-02] MEDS ORDERED: BENZOCAINE/MENTHOL (CHLORASEPTIC ) LOZENGE MM PRN (03:24)
[2023-08-02] MEDS ORDERED: NICOTINE POLACRILEX 4 MG GUM BUC PRN (03:24)
[2023-08-02] MEDS ORDERED: ONDANSETRON *ODT* 4 MG TABLET SL PRN (03:24)
[2023-08-02] MEDS ORDERED: LOPERAMIDE HCL 2 MG CAPSULE PO PRN (03:24)
[2023-08-02] MEDS ORDERED: POLYETHYLENE GLYCOL (HEALTHYLAX) 3350 17 GM PACKET PO PRN (03:24)
[2023-08-02] MEDS ORDERED: chlordiazePOXIDE HCL 25 MG CAPSULE PO PRN (03:24)
[2023-08-02] MEDS ORDERED: MAGNESIUM HYDROX 2400MG/30ML ORAL SUSPENSION 30 ML CUP PO PRN (03:24)
[2023-08-02] MEDS ORDERED: DICYCLOMINE HCL 10 MG CAPSULE PO PRN (03:24)
[2023-08-02] MEDS ORDERED: BISMUTH SUBSALICYLATE 524 MG/30 ML PO PRN (03:24)
[2023-08-02] MEDS ORDERED: IBUPROFEN 600 MG TABLET (FP) PO PRN (03:24)
[2023-08-02] MEDS ORDERED: NALOXONE HCL 0.4 MG/ML VIAL IM PRN (03:24)
[2023-08-02] MEDS: chlordiazePOXIDE HCL 25 MG CAPSULE PO ONE (03:33)
[2023-08-02] MEDS: chlordiazePOXIDE HCL 25 MG CAPSULE PO SCH (04:38)
[2023-08-02] MEDS: NICOTINE 21 MG/24 HOURS TOPICAL PATCH TD SCH (10:14)
[2023-08-02] MEDS: PRENATAL VITAMINS W/ FOLIC ACID TABLET (FP) PO SCH (10:14)
[2023-08-02 10:53] LABS: HEMATOCRIT 40.5 % (35.4-49); HEMOGLOBIN 13.8 GM/dL (11.7-16.9); MCH 29.7 pg (25.7-33.7); MEAN CELL VOLUME 87.3 fl (80-96); MEAN PLT VOLUME 8.6 fl (7.5-11.1); RBC 4.64 M/mm3 (4.00-5.60); RDW 13.4 % (11.9-15.9); WHITE BLOOD COUNT 3.8 K/mm3 (4.0-10.0)
[2023-08-02 11:09] LABS: CHLORIDE 100 mmol/L (98-107); SODIUM 138 mmol/L (136-145)
[2023-08-02 11:17] LABS: ALBUMIN 3.3 g/dl (3.4-5.0); CO2 29 mmol/L (21-32); GLUCOSE,RANDOM 86 mg/dL (74-106)
[2023-08-02 11:19] LABS: CREATININE 0.5 mg/dL (0.55-1.3); SGOT/AST 167 U/L (15-37); SGPT/ALT 71 U/L (13-61)
[2023-08-02 11:21] LABS: BILIRUBIN,TOTAL 0.7 mg/dL (0.2-1)
[2023-08-02 11:22] LABS: ALK PHOS 143 U/L (45-117)
[2023-08-02 11:23] LABS: ANION GAP 9 mmol/L (4-13); POTASSIUM 2.9 mmol/L (3.5-5.1)
[2023-08-02 11:41] LABS: PLATELET COUNT 87 10^3/uL (134-434)
[2023-08-02] MEDS: POTASSIUM CHLORIDE ORAL LIQUID 20 MEQ/15 ML PO ONE ×3 (13:19→17:29)
[2023-08-02] MEDS: LORazepam 2 MG TABLET PO SCH (17:28)
[2023-08-02] MEDS: THIAMINE 100 MG TABLET PO SCH (22:21)
[2023-08-02] MEDS: MELATONIN 5 MG TABLETS PO SCH (22:21)
[2023-08-03] MEDS ORDERED: chlordiazePOXIDE HCL 25 MG CAPSULE PO SCH (05:00)
[2023-08-03] MEDS: LORazepam 1 MG TABLET PO SCH (05:10)
[2023-08-03] MEDS: cloNIDine HCL 0.1 MG TABLET PO PRN (22:04)
[2023-08-04] MEDS ORDERED: chlordiazePOXIDE HCL 10 MG CAPSULE PO PRN
[2023-08-04] MEDS ORDERED: chlordiazePOXIDE HCL 10 MG CAPSULE PO SCH (05:00)
[2023-08-04] MEDS: LORazepam 0.5 MG TABLET PO SCH (05:00)
[2023-08-04] MEDS: LORazepam 0.5 MG TABLET PO PRN (14:45)
[2023-08-04] MEDS: hydrOXYzine PAMOATE 25 MG CAPSULE (FP) PO PRN (22:25)
[2023-08-05] MEDS ORDERED: chlordiazePOXIDE HCL 10 MG CAPSULE PO SCH (05:00)
[2023-08-05] MEDS: LORazepam 0.5 MG TABLET PO ONE (05:14)
[2023-08-06] MEDS ORDERED: chlordiazePOXIDE HCL 10 MG CAPSULE PO ONE (05:00)
[2023-08-06 06:02] VITALS: RESP 16
[2023-08-06 09:31] VITALS: BP 115/72; PULSE 90; TEMP 97.8
== END 2023-08-06 10:06 | disposition home or self-care (01) | DRG 775 ==
LOC: YASAS 02:36 → Y3N 04:00
PROVIDERS: ADMIT Allergy & Immunology; ATTEND Allergy & Immunology
PROC: HZ2ZZZZ Detoxification Services for Substance Abuse Treatment (ICD-10-PCS; principal; 2023-08-01)
DX: F10.230 Alcohol dependence with withdrawal, uncomplicated (principal); F17.210 Nicotine dependence, cigarettes, uncomplicated; E87.6 Hypokalemia; R74.01 Elevation of levels of liver transaminase levels; K59.00 Constipation, unspecified
CPT/HCPCS: 36415; 80053; 80305; 80307; 84075; 84132; 84450; 84460; 85027; 86780; 93005; 93010